=== PATIENT | female | born 1975 | race Two or more races ===

== ENCOUNTER 2019-07-08 22:49 | Emergency (ER) | payer SELFPAY ==
[~2019-07-08] VITALS: Ht 165.1 cm; Wt 69.0 kg
[2019-07-09 00:52] LABS: EOSINOPHILS % 1.5 % (0.0-5.0); HEMATOCRIT. 37.8 % (36.0-48.0); HEMOGLOBIN. 12.7 g/dL (12.0-16.0); LYMPHOCYTES % 30.7 % (20.0-50.0); MEAN CORPUSCULAR HEMOGLOBIN 30.2 pg (28.0-32.0); MEAN PLATELET VOLUME 7.9 fl (7.4-10.4); MONOCYTES % 4.4 % (2.0-8.0); NEUTROPHILS % 62.4 % (40.0-76.0); PLATELET 304 x1000/uL (130-400); RED CELL DISTRIBUTION WIDTH 13.9 % (11.6-14.6)
[2019-07-09 00:59] LABS: CHLORIDE 113 mEq/L (98-107)
[2019-07-09 01:03] LABS: ETHANOL BLOOD 145 mg/dL
[2019-07-09 04:17] VITALS: BP 123/74
== END 2019-07-09 05:38 | disposition home or self-care (01) ==
LOC: ER 22:49
DX: F41.9 Anxiety disorder, unspecified (principal); F10.129 Alcohol abuse with intoxication, unspecified; Y90.0 Blood alcohol level of less than 20 mg/100 ml
CPT/HCPCS: 36415; 71045; 80053; 80320; 83880; 84484; 85025; 93005; 99284; G0480